=== PATIENT | male | born 1980 | race Caucasian/White ===

== ENCOUNTER 2017-05-13 17:22 | Emergency (ER) | payer BC ==
[~2017-05-13] VITALS: Ht 172.7 cm; Wt 79.4 kg
[2017-05-13 17:22] VITALS: BP_SYST 143
[2017-05-13 17:52] VITALS: BP_SYST 138
== END 2017-05-13 17:52 | disposition home or self-care (01) ==
LOC: SED 17:22
DX: J02.9 Acute pharyngitis, unspecified (principal)
CPT/HCPCS: 99283

== ENCOUNTER 2020-07-17 18:59 | Emergency (ER) | payer BC, OTHER ==
[~2020-07-17] VITALS: Ht 172.7 cm; Wt 79.4 kg
[2020-07-17 19:12] VITALS: BP_SYST 124
== END 2020-07-17 21:44 | disposition home or self-care (01) ==
LOC: SED 18:59
DX: M65.4 Radial styloid tenosynovitis [de Quervain] (principal)
CPT/HCPCS: 99283